=== PATIENT | female | born 1965 | race Caucasian/White ===

== ENCOUNTER 2021-02-04 19:15 | Emergency (ER) | payer OTHER ==
[2021-02-04 21:56] LABS: BASOPHIL 0.4 % (0-2); EOSINOPHIL 0.5 % (0-5); HCT 40.8 % (37.0-47.0); HGB 13.4 g/dl (12.5-16.0); LYMPHOCYTE 13.3 % (15-48); MCH 30.5 pg (25.0-31.0); MCHC 32.8 g/dL (32.0-36.0); MCV 92.7 fL (78.0-100.0); MONOCYTE 3.4 % (0-12); MPV 9.6 fL (6.0-9.5); NEUTROPHIL 82.2 % (41-80); NRBC 0; PLT 257 K/uL (150-400); RDW 13.1 % (11.5-14.0); WBC 8.5 K/uL (4.0-10.5)
[2021-02-04 22:14] LABS: BILIRUBIN NEGATIVE (NEGATIVE); BLOOD 2+ Ery/uL (NEGATIVE); CLARITY CLEAR (CLEAR); COLOR YELLOW (YELLOW); GLUCOSE (U) NORMAL (NORMAL); LEUKOCYTES TRACE Leu/uL (NEGATIVE); NITRITE NEGATIVE (NEGATIVE); PROTEIN NEGATIVE (NEGATIVE); SPECIFIC GRAVITY 1.025 (1.001-1.030); UROBILINOGEN 0.2 mg/dL (0.2-1.0)
[2021-02-04 22:15] LABS: ALBUMIN 4.1 g/dL (3.4-5.0); BILIRUBIN - TOTAL 0.8 mg/dL (0.2-1.0); BUN/CREAT RATIO (CALC) 15.9 RATIO; CREATININE 0.88 mg/dL (0.51-0.95); GLOBULIN (CALCULATION) 3.5 g/dL; POTASSIUM 4.2 mmol/L (3.5-5.1); TOTAL PROTEIN 7.6 g/dL (6.4-8.2)
[2021-02-04 22:23] LABS: BACTERIA 3+; SQUAMOUS EPITHELIAL CELLS RARE; URINARY RBC RARE
[2021-02-05] MEDS ORDERED: BACTRIM DS TAB1 EACH PO (09:31)
[2021-02-05] MEDS ORDERED: PYRIDIUM200 M1 PO (09:31)
[2021-02-05] MEDS ORDERED: BENTYL10 MG PO (09:31)
[2021-02-05] MEDS ORDERED: ONDANSETRON ODT4 MG PO (09:31)
== END 2021-02-05 10:00 | disposition home or self-care (01) ==
LOC: FER 19:15
PROVIDERS: Emergency Medicine
DX: K52.9 Noninfective gastroenteritis and colitis, unspecified (principal); N39.0 Urinary tract infection, site not specified; Z88.0 Allergy status to penicillin; Z88.1 Allergy status to other antibiotic agents; Z98.51 Tubal ligation status
CPT/HCPCS: 36415; 80053; 81001; 85025; 87088; J7030